=== PATIENT | male | born 1970 | race Hispanic/Latino ===

== ENCOUNTER 2017-09-16 14:44 | Emergency (ER) | payer OTHER ==
[2017-09-16 16:43] LABS: Basophils # (Auto) 0.1 K/mm3 (0.0-0.1); Basophils % (Auto) 1.3 % (0.0-1.8); Eosinophils # (Auto) 0.1 K/mm3 (0.0-0.4); Eosinophils % (Auto) 0.9 % (0.0-4.3); Hematocrit 47.1 % (35.5-45.6); Hemoglobin 15.8 gm/dl (11.8-15.2); Lymphocytes # (Auto) 2.8 K/mm3 (1.2-5.4); Lymphocytes % (Auto) 27.4 % (13.4-35.0); Mean Corpuscular HGB Conc 34 % (32-34); Mean Corpuscular Hemoglobin 28 pg (28-32); Mean Corpuscular Volume 84 fl (84-94); Monocytes # (Auto) 0.6 K/mm3 (0.0-0.8); Monocytes % (Auto) 6.2 % (0.0-7.3); Platelet Count 303 K/mm3 (140-440); Red Blood Count 5.63 M/mm3 (3.65-5.03); Red Cell Distribution Width 12.8 % (13.2-15.2)
[2017-09-16 16:56] LABS: Alanine Aminotransferase 36 units/L (7-56); Albumin 4.2 g/dL (3.9-5); BUN/Creatinine Ratio 11; Blood Urea Nitrogen 9 mg/dL (9-20); Calcium 9.2 mg/dL (8.4-10.2); Hemolysis Index 10
[2017-09-16] MEDS ORDERED: TORADOL IV ONE (17:31)
[2017-09-16] MEDS ORDERED: TORADOL ONE (17:31)
[2017-09-16 18:01] LABS: Bilirubin,Urine NEG (Negative); Blood,Urine NEG (Negative); Color,Urine Straw (Yellow); Protein,Urine <15 mg/dL mg/dL (Negative); Urobilinogen,Urine < 2.0 mg/dL (<2.0)
[2017-09-16 18:03] LABS: WBC,Urine < 1.0 /HPF (0.0-6.0)
--- NOTE | 2017-09-16 18:32 | Emergency Department Report ---
- General Chief complaint: Weakness Stated complaint: HTN Time Seen by Provider: 09/16/17 16:04 Source: patient Mode of arrival: Ambulatory Limitations: No Limitations - History of Present Illness Initial comments: Patient is a 47-year-old male who is presenting with several weeks of being sluggish mild dizziness without headache and urinary frequency. Patient states the urinary frequency is been going on for several weeks and he assumed that he is blood sugar may be elevated he went to a fire department to have it checked the blood sugar was 5 hours blood pressure was 200/115. Patient states that this headache is pressure-like sensation in frontal region that occurs occasionally. Patient was told the past. He may need to start medications for blood pressure in the future if he becomes higher. Patient does not remember how high his blood pressure was at that time. Patient does have a history of high cholesterol and a family history hypertension and high cholesterol and diabetes. - Related Data Previous Rx's Medication Instructions Recorded Last Taken Type Amlodipine Besylate [Norvasc] 5 mg PO DAILY #30 tablet 09/16/17 Unknown Rx Ciprofloxacin HCl [Cipro] 500 mg PO BID #14 tablet 09/16/17 Unknown Rx Allergies Allergy/AdvReac Type Severity Reaction Status Date / Time No Known Allergies Allergy Unverified 09/16/17 14:54 ED Review of Systems ROS: Stated complaint: HTN Other details as noted in HPI Comment: All other systems reviewed and negative Genitourinary: urgency, other (patient has a remote history of chronic prostatitis) ED Past Medical Hx - Past Medical History Previous Medical History?: No - Surgical History Past Surgical History?: No - Social History Smoking Status: Never Smoker Substance Use Type: None - Medications Home Medications: Home Medications Medication Instructions Recorded Confirmed Last Taken Type Amlodipine Besylate [Norvasc] 5 mg PO DAILY #30 tablet 09/16/17 Unknown Rx Ciprofloxacin HCl [Cipro] 500 mg PO BID #14 tablet 09/16/17 Unknown Rx ED Physical Exam - General Limitations: No Limitations General appearance: alert, in no apparent distress - Head Head exam: Present: atraumatic, normocephalic - Eye Eye exam: Present: normal appearance - ENT ENT exam: Present: mucous membranes moist - Neck Neck exam: Present: normal inspection - Respiratory Respiratory exam: Present: normal lung sounds bilaterally. Absent: respiratory distress - Cardiovascular Cardiovascular Exam: Present: regular rate, normal rhythm. Absent: systolic murmur, diastolic murmur, rubs, gallop - GI/Abdominal GI/Abdominal exam: Present: soft, normal bowel sounds - Rectal Rectal exam: Present: deferred - Extremities Exam Extremities exam: Present: normal inspection - Back Exam Back exam: Present: normal inspection - Neurological Exam Neurological exam: Present: alert, oriented X3 - Psychiatric Psychiatric exam: Present: normal affect, normal mood - Skin Skin exam: Present: warm, dry, intact, normal color. Absent: rash ED Course Vital Signs 09/16/17 09/16/17 09/16/17 14:47 15:42 15:45 Temperature 98.6 F Pulse Rate 93 H Respiratory 16 Rate Blood Pressure 140/103 140/96 O2 Sat by Pulse 100 99 98 Oximetry 09/16/17 09/16/17 09/16/17 16:00 16:15 16:23 Temperature 98.6 F Pulse Rate 86 93 H Respiratory 17 16 Rate Blood Pressure 135/92 144/94 O2 Sat by Pulse 96 97 100 Oximetry 09/16/17 09/16/17 09/16/17 16:30 16:45 17:00 Temperature Pulse Rate 82 83 82 Respiratory 15 22 14 Rate Blood Pressure 137/89 137/93 143/87 O2 Sat by Pulse 97 95 Oximetry ED Medical Decision Making - Lab Data Result diagrams: 09/16/17 16:23 09/16/17 16:23 - EKG Data -: EKG Interpreted by Me - EKG Data Interpretation: other (EKG shows sinus rhythm rate 89 and waxes normal intervals no ST segment elevations or depressions) - Medical Decision Making Patient's blood pressure naturally decreased here in emergency department however still in the 3 hypertensive range. Patient's will be started on Norvasc 5 mg daily patient also will be started on Cipro for presumed prostatitis. Patient be discharged home following his primary care physician as he does not live in the city. Critical care attestation.: If time is entered above; I have spent that time in minutes in the direct care of this critically ill patient, excluding procedure time. ED Disposition Clinical Impression: Hypertension Qualifiers: Hypertension type: essential hypertension Qualified Code(s): I10 - Essential ( primary) hypertension Prostatitis Qualifiers: Prostatitis type: unspecified Qualified Code(s): N41.9 - Inflammatory disease of prostate, unspecified Disposition: DC-01 TO HOME OR SELFCARE Is pt being admited?: No Does the pt Need Aspirin: No Condition: Stable Instructions: Hypertension (ED), Prostatitis (ED) Prescriptions: Amlodipine Besylate [Norvasc] 5 mg PO DAILY #30 tablet Ciprofloxacin HCl [Cipro] 500 mg PO BID #14 tablet Referrals: ANDREW ALBERT [Other] - 3-5 Days
[2017-09-16 19:22] VITALS: BP 155/80
== END 2017-09-16 19:43 | disposition home or self-care (01) ==
LOC: ED 14:44
DX: N41.9 Inflammatory disease of prostate, unspecified (principal); I10 Essential (primary) hypertension
CPT/HCPCS: 36415; 80053; 81001; 85025; 93005; 93010; 96374; 99283; J1885

== ENCOUNTER 2017-12-05 19:21 | Emergency (ER) | payer OTHER ==
--- NOTE | 2017-12-05 20:18 | Emergency Department Report ---
ED Chest Pain HPI - General Chief Complaint: Chest Pain Stated Complaint: CHEST PAIN Time Seen by Provider: 12/05/17 20:04 Source: patient, EMS Mode of arrival: Stretcher Limitations: No Limitations - History of Present Illness Initial Comments: Patient is 47 years old male with past medical history of hypertension, hyperlipidemia and history of smoking. Patient presented to the ER complaining of substernal chest pain that started this afternoon, intermittent, does not radiate. Patient denied any fever, cough or shortness of breath. MD Complaint: chest pain -: This afternoon Onset: during rest Pain Location: substernal Pain Radiation: none Severity scale (0 -10): 7 Quality: pressure Consistency: intermittent - Related Data Previous Rx's Medication Instructions Recorded Last Taken Type Amlodipine Besylate [Norvasc] 5 mg PO DAILY #30 tablet 09/16/17 Unknown Rx Ciprofloxacin HCl [Cipro] 500 mg PO BID #14 tablet 09/16/17 Unknown Rx Allergies Allergy/AdvReac Type Severity Reaction Status Date / Time No Known Allergies Allergy Unverified 09/16/17 14:54 Heart Score - HEART Score History: Moderately suspicious EKG: Non-specific Age: 45-65 Risk factors: 1-2 risk factors Troponin: < normal limit HEART Score: 4 - Critical Actions Critical Actions: 4-6 pts:12-16.6% risk of adverse cardiac event. Should be admitted ED Review of Systems ROS: Stated complaint: CHEST PAIN Other details as noted in HPI Comment: All other systems reviewed and negative Constitutional: denies: chills, fever Respiratory: denies: cough, orthopnea, shortness of breath, SOB with exertion, SOB at rest, wheezing Cardiovascular: chest pain. denies: palpitations, dyspnea on exertion, orthopnea Gastrointestinal: denies: abdominal pain, nausea, vomiting, diarrhea, constipation, hematemesis, melena, hematochezia Neurological: denies: headache, weakness, numbness, paresthesias, confusion, abnormal gait ED Past Medical Hx - Past Medical History Hx Hypertension: Yes (non-compliant with meds) - Surgical History Additional Surgical History: back, R rotator cuff, hernia repair - Social History Smoking Status: Never Smoker Substance Use Type: Alcohol - Medications Home Medications: Home Medications Medication Instructions Recorded Confirmed Last Taken Type Amlodipine Besylate [Norvasc] 5 mg PO DAILY #30 tablet 09/16/17 Unknown Rx Ciprofloxacin HCl [Cipro] 500 mg PO BID #14 tablet 09/16/17 Unknown Rx ED Physical Exam - General Limitations: No Limitations General appearance: alert, in no apparent distress - Head Head exam: Present: atraumatic, normocephalic, normal inspection - ENT ENT exam: Present: normal exam, normal orophraynx, mucous membranes moist - Respiratory Respiratory exam: Present: normal lung sounds bilaterally. Absent: respiratory distress, wheezes, rales, rhonchi, stridor, accessory muscle use, decreased breath sounds, prolonged expiratory - Cardiovascular Cardiovascular Exam: Present: regular rate, normal rhythm, normal heart sounds - GI/Abdominal GI/Abdominal exam: Present: soft, normal bowel sounds. Absent: distended, tenderness, guarding, rebound, rigid, organomegaly, mass, bruit, pulsatile mass , hernia - Extremities Exam Extremities exam: Present: normal inspection, full ROM, normal capillary refill - Back Exam Back exam: Present: normal inspection, full ROM. Absent: tenderness, CVA tenderness (R), CVA tenderness (L), muscle spasm, paraspinal tenderness, vertebral tenderness, rash noted - Neurological Exam Neurological exam: Present: alert, oriented X3, CN II-XII intact, normal gait, reflexes normal - Skin Skin exam: Present: warm, intact, normal color ED Course Vital Signs 12/05/17 12/05/17 12/05/17 19:45 19:47 20:00 Temperature 98.4 F Pulse Rate 94 H 98 H 92 H Respiratory 18 18 20 Rate Blood Pressure 138/94 135/93 138/94 Blood Pressure [Left] O2 Sat by Pulse 95 96 97 Oximetry 12/05/17 12/05/17 12/05/17 20:11 20:15 20:24 Temperature Pulse Rate 93 H Respiratory 18 16 16 Rate Blood Pressure 145/90 Blood Pressure [Left] O2 Sat by Pulse 96 94 Oximetry 12/05/17 12/05/17 12/05/17 20:38 20:39 20:45 Temperature Pulse Rate 90 90 90 Respiratory 22 16 20 Rate Blood Pressure 135/93 140/89 Blood Pressure 134/83 [Left] O2 Sat by Pulse 97 94 94 Oximetry 12/05/17 12/05/17 12/05/17 21:00 21:15 21:24 Temperature Pulse Rate 83 84 Respiratory 21 19 16 Rate Blood Pressure 125/86 132/88 Blood Pressure [Left] O2 Sat by Pulse 92 Oximetry 12/05/17 12/05/17 12/05/17 21:34 21:45 22:04 Temperature Pulse Rate 74 Respiratory 16 16 16 Rate Blood Pressure 135/90 Blood Pressure [Left] O2 Sat by Pulse 94 Oximetry 12/05/17 22:15 Temperature Pulse Rate 75 Respiratory 18 Rate Blood Pressure 119/81 Blood Pressure [Left] O2 Sat by Pulse 93 Oximetry - Reevaluation(s) Reevaluation #1: 12/06/17 00:34 Since stated that he is feeling much better. His symptoms completely resolved. No chest pain at this moment. I discussed with the patient his risk factor and the need to follow-up with his primary care physician for stress test and further evaluation. Patient agreed with the plan and he stated that he will follow-up with his primary care physician. ED Medical Decision Making - Lab Data Result diagrams: 12/05/17 20:14 12/05/17 20:14 - EKG Data -: EKG Interpreted by Ca EKG shows normal: sinus rhythm - EKG Data Interpretation: no acute changes - Radiology Data Radiology results: report reviewed Referring Physician: FLORIAN HALL Patient Name: KEELY ALVES Date of : 1970 Sex: Male Report Date: 2017-12-05 Report Status: Finalized Findings [address] [address] XRay Report Signed Patient: KEELY ALVES MR#: [id number] : 1970 Acct:[id number] Age/Sex: 47 / M ADM Date: 12/05/17 Loc: ED Attending Dr: Ordering Physician: FLORIAN HALL Date of Service: 12/05/17 Procedure(s): XR chest routine 2V Accession Number(s): [id number] cc: FLORIAN HALL Fluoro Time In Minutes: FINAL REPORT PROCEDURE: XR CHEST ROUTINE 2V TECHNIQUE: PA and lateral chest radiographs were obtained. CPT 78352 HISTORY: shortness of breath COMPARISON: No prior studies are available for comparison. FINDINGS: Heart: Normal. Mediastinum/Vessels: Normal. Lungs/Pleural space: No infiltrate, effusion, or pneumothorax. Bony thorax: No acute osseous abnormality. Other: IMPRESSION: No radiographic evidence of acute abnormality. Transcribed By: [facility] Dictated By: SÁNCHEZ VICTOR M.D. Electronically Authenticated By: SÁNCHEZ VICTOR M.D. Signed Date/Time: 12/05/172234 DD/ 34 TD/TT: 12/05/172234 Critical care attestation.: If time is entered above; I have spent that time in minutes in the direct care of this critically ill patient, excluding procedure time. ED Disposition Clinical Impression: Chest pain Disposition: DC-01 TO HOME OR SELFCARE Is pt being admited?: No Condition: Stable Instructions: Chest Pain (ED) Referrals: PRIMARY CARE,MD [Primary Care Provider] - 3-5 Days Forms: Work/School Release Form(ED)
[2017-12-05] MEDS ORDERED: TYLENOL ONE (20:20)
[2017-12-05] MEDS ORDERED: TYLENOL PO ONE (20:21)
[2017-12-05 20:32] LABS: Basophils # (Auto) 0.1 K/mm3 (0.0-0.1); Basophils % (Auto) 0.5 % (0.0-1.8); Eosinophils % (Auto) 0.3 % (0.0-4.3); Hematocrit 47.6 % (35.5-45.6); Hemoglobin 15.6 gm/dl (11.8-15.2); Lymphocytes # (Auto) 2.1 K/mm3 (1.2-5.4); Lymphocytes % (Auto) 18.9 % (13.4-35.0); Mean Corpuscular HGB Conc 33 % (32-34); Mean Corpuscular Hemoglobin 28 pg (28-32); Mean Corpuscular Volume 85 fl (84-94); Monocytes # (Auto) 0.7 K/mm3 (0.0-0.8); Monocytes % (Auto) 6.1 % (0.0-7.3); Platelet Count 297 K/mm3 (140-440); Red Blood Count 5.58 M/mm3 (3.65-5.03); Red Cell Distribution Width 13.7 % (13.2-15.2)
[2017-12-05 20:51] LABS: BUN/Creatinine Ratio 9; Blood Urea Nitrogen 8 mg/dL (9-20); Calcium 9.5 mg/dL (8.4-10.2); Hemolysis Index 11
[2017-12-05] MEDS ORDERED: TORADOL ONE (21:24)
[2017-12-05] MEDS ORDERED: TORADOL IV ONE (21:29)
--- NOTE | 2017-12-05 22:40 | XRay Report ---
FINAL REPORT PROCEDURE: XR CHEST ROUTINE 2V TECHNIQUE: PA and lateral chest radiographs were obtained. CPT 85680 HISTORY: shortness of breath COMPARISON: No prior studies are available for comparison. FINDINGS: Heart: Normal. Mediastinum/Vessels: Normal. Lungs/Pleural space: No infiltrate, effusion, or pneumothorax. Bony thorax: No acute osseous abnormality. Other: IMPRESSION: No radiographic evidence of acute abnormality.
[2017-12-06 00:51] VITALS: BP 109/73
== END 2017-12-06 00:51 | disposition home or self-care (01) ==
LOC: ED 19:21
DX: R07.89 Other chest pain (principal); I10 Essential (primary) hypertension
CPT/HCPCS: 36415; 71046; 80048; 84484; 85025; 85379; 93005; 93010; 96374; 99284; J1885